=== PATIENT | male | born 1940 | race Caucasian/White ===

== ENCOUNTER → 2016-07-04 | Outpatient (CLI) | payer MEDICARE, MEDICAID ==
[~2016-07-04] MED LIST: ASPIRIN81 M1 PO; ATARAX25 MG PO; ATIVAN0.5 MG PO; ATIVAN1 MG PO; AUGMENTIN 875875 MG PO; BENADRYL25 MG PO; COREG6.25 MG PO; CORTISPORIN SUS10 ML OT; CYMBALTA30 M1 PO; CYMBALTA30 MG PO; DAYPRO600 M1 PO; DEBROX 15 ML15 M1 OT; DEBROX15 ML OT; FLOMAX0.4 MG PO; GABAPENTIN400 MG PO; HYDROCODONE BIT1 T11 PO; LISINOPRIL10 MG PO; MEDROL DOSEPAK4 MG PO; MELOXICAM7.5 MG PO; METOPROLOL SUCC ER 5; NEURONTIN300 MG PO; PERCOCET 325 MG1 TA6 PO; PRAVACHOL40 MG PO; PREDNICOT20 MG PO; PREDNISONE10 MG PO; ROBAXIN750 MG PO; SLEEPING PILL; TOPROL XL25 MG PO; VICODIN 5/500 505 MG PO; VICODIN 500 MG-1 TAB PO; ZANTAC 150150 MG PO; ZETIA10 MG PO; ZOFRAN ODT4 MG SL; ZYRTEC10 MG PO; [UNRECOGNIZED DRUG - REMARK]
[2016-07-04 10:37] LABS: THYROID STIM HORMONE (HS) 0.908 uIU/ml (0.358-4.75)
== END | disposition home or self-care (01) ==
LOC: LAB 09:24
PROVIDERS: Internal Medicine
DX: C61 Malignant neoplasm of prostate (principal); I25.10 Atherosclerotic heart disease of native coronary artery without angina pectoris; I49.01 Ventricular fibrillation; Z79.899 Other long term (current) drug therapy

== ENCOUNTER 2016-08-29 17:06 | Emergency (ER) | payer OTHER, MEDICAID ==
[~2016-08-29] VITALS: Ht 170.1 cm; Wt 75.3 kg
[2016-08-29 17:09] VITALS: BP 134/82
== END 2016-08-29 17:49 | disposition home or self-care (01) ==
LOC: ED 17:06
DX: H61.23 Impacted cerumen, bilateral (principal); Z79.899 Other long term (current) drug therapy; Z79.82 Long term (current) use of aspirin; Z98.890 Other specified postprocedural states; Z95.0 Presence of cardiac pacemaker; Z88.8 Allergy status to other drugs, medicaments and biological substances; Z88.5 Allergy status to narcotic agent

== ENCOUNTER 2016-09-09 11:11 | Emergency (ER) | payer OTHER, MEDICAID ==
[~2016-09-09] VITALS: Wt 74.8 kg
[2016-09-09 11:44] LABS: BASO # 0.1 10*3/uL (0.0-0.1); BASO % 0.5 % (0.0-1.0); EOS # 0.2 10*3/uL (0.0-0.4); EOS % 2.4 % (1.0-4.0); HEMATOCRIT 41.2 % (42.0-52.0); HEMOGLOBIN 13.7 g/dl (14.0-18.0); LYMPH # 3.9 10*3/uL (1.3-4.4); LYMPH % 39.8 % (27.0-41.0); MEAN CELL VOLUME 89.6 fl (80.0-94.0); MEAN CORPUSCULAR HGB 29.8 pg (27.0-31.0); MEAN CORPUSCULAR HGB CONC 33.3 g/dl (33.0-37.0); MEAN PLATELET VOLUME 8.9 fl (9.6-12.3); MONO # 0.9 10*3/uL (0.1-1.0); MONO % 9.3 % (3.0-9.0); NEUT # 4.6 10*3/uL (2.3-7.9); NEUT % 47.7 % (47.0-73.0); PLATELET COUNT AUTOMATED 236 10*3/uL (130-400); RED CELL DISTRI WIDTH 13.4 % (0-14.5); WHITE BLOOD COUNT 9.7 10*3/uL (4.8-10.8)
[2016-09-09 12:01] LABS: ALBUMIN 3.5 gm/dl (3.1-4.5); ALKALINE PHOSPHATASE 101 U/L (45-117); BILIRUBIN, TOTAL 0.5 mg/dl (0.2-1.0); BUN 20 mg/dl (7-24); CARBON DIOXIDE 27 mmol/L (21-32); CHLORIDE 102 mmol/L (98-107); EST GLOM FILT AFRICAN AMERICAN > 60 ml/min; GLUCOSE 157 mg/dL (65-99); POTASSIUM 3.9 mmol/L (3.5-5.1); SGOT/AST 19 IU/L (3-35); SGPT/ALT 20 U/L (12-78); SODIUM 142 mmol/L (136-145); TOTAL PROTEIN 7.8 gm/dL (6.4-8.2)
[2016-09-09 12:03] LABS: TROPONIN I < 0.015 ng/ml (<0.045)
[2016-09-09 12:29] VITALS: BP 127/84
[2016-09-09 12:31] LABS: INTERNATIONAL NORM RATIO 0.9 (2.0-3.5)
== END 2016-09-09 13:26 | disposition home or self-care (01) ==
LOC: ED 11:11
PROVIDERS: Emergency Medicine
DX: I49.3 Ventricular premature depolarization (principal); Z95.0 Presence of cardiac pacemaker; Z88.6 Allergy status to analgesic agent; Z88.8 Allergy status to other drugs, medicaments and biological substances; Z79.82 Long term (current) use of aspirin; Z79.899 Other long term (current) drug therapy

== ENCOUNTER 2016-09-20 00:42 | Emergency (ER) | payer OTHER, MEDICAID ==
[~2016-09-20] VITALS: Ht 167.6 cm; Wt 76.2 kg
[2016-09-20 00:49] VITALS: BP 128/73
[2016-09-20 02:14] LABS: BILIRUBIN NEGATIVE (NEGATIVE); BLOOD NEGATIVE (NEGATIVE); CLARITY CLEAR (CLEAR); COLOR YELLOW (YELLOW); GLUCOSE NEGATIVE (NEGATIVE); KETONE NEGATIVE (NEGATIVE); LEUKO ESTERASE NEGATIVE (NEGATIVE); NITRITE NEGATIVE (NEGATIVE); PROTEIN NEGATIVE (NEGATIVE); SPECIFIC GRAVITY 1.025 (1.005-1.030); UROBILINOGEN 0.2 E.U./dl (0.2-1.0)
[2016-09-20] MEDS ORDERED: HYDROCODONE/ACE1 T14 PO (02:14)
[2016-09-20 02:22] LABS: BACTERIA TRACE; URINE REFLEX COMMENT NO (NO); WBC 0-2 wbc/hpf (0-5)
== END 2016-09-20 02:25 | disposition home or self-care (01) ==
LOC: ED 00:42
PROVIDERS: Family Medicine Sports Medicine
DX: N20.0 Calculus of kidney (principal); I25.2 Old myocardial infarction; Z85.46 Personal history of malignant neoplasm of prostate; Z85.038 Personal history of other malignant neoplasm of large intestine; Z88.8 Allergy status to other drugs, medicaments and biological substances; Z88.6 Allergy status to analgesic agent; Z79.82 Long term (current) use of aspirin; Z79.899 Other long term (current) drug therapy

== ENCOUNTER → 2016-10-31 | Outpatient (CLI) | payer OTHER, MEDICAID ==
[~2016-10-31] MED LIST changes: +HYDROCODONE/ACE1 T14 PO
[2016-10-31 16:16] LABS: BASO # 0.1 10*3/uL (0.0-0.1); BASO % 0.6 % (0.0-1.0); EOS # 0.3 10*3/uL (0.0-0.4); EOS % 2.9 % (1.0-4.0); HEMATOCRIT 41.9 % (42.0-52.0); HEMOGLOBIN 14.1 g/dl (14.0-18.0); LYMPH # 3.9 10*3/uL (1.3-4.4); LYMPH % 39.3 % (27.0-41.0); MEAN CELL VOLUME 90.3 fl (80.0-94.0); MEAN CORPUSCULAR HGB 30.4 pg (27.0-31.0); MEAN CORPUSCULAR HGB CONC 33.7 g/dl (33.0-37.0); MEAN PLATELET VOLUME 8.8 fl (9.6-12.3); MONO # 0.9 10*3/uL (0.1-1.0); MONO % 8.9 % (3.0-9.0); NEUT # 4.7 10*3/uL (2.3-7.9); PLATELET COUNT AUTOMATED 221 10*3/uL (130-400); RED BLOOD COUNT 4.64 10*6/uL (4.50-5.90); RED CELL DISTRI WIDTH 13.5 % (0-14.5); WHITE BLOOD COUNT 9.9 10*3/uL (4.8-10.8)
[2016-10-31 16:48] LABS: BILIRUBIN, TOTAL 0.6 mg/dl (0.2-1.0); BUN 26 mg/dl (7-24); CARBON DIOXIDE 29 mmol/L (21-32); CHLORIDE 103 mmol/L (98-107); CHOLESTEROL 190 mg/dL (<200); EST GLOM FILT AFRICAN AMERICAN > 60 ml/min; GLUCOSE 104 mg/dL (65-99); POTASSIUM 4.6 mmol/L (3.5-5.1); SGOT/AST 23 IU/L (3-35); SGPT/ALT 22 U/L (12-78); SODIUM 139 mmol/L (136-145); TOTAL PROTEIN 8.5 gm/dL (6.4-8.2); TRIGLYCERIDES 187 mg/dl (<150); VLDL CHOLESTEROL 37 mg/dL (6-40)
[2016-10-31 16:49] LABS: ALKALINE PHOSPHATASE 110 U/L (45-117); HDL CHOLESTEROL 44 mg/dl (40-60); LDL CHOLESTEROL 109 mg/dL (9-159)
== END | disposition home or self-care (01) ==
LOC: LAB 15:31
PROVIDERS: Nurse Practitioner Family
DX: I10 Essential (primary) hypertension (principal); E78.2 Mixed hyperlipidemia

== ENCOUNTER 2016-12-19 10:14 | Emergency (ER) | payer OTHER, MEDICAID ==
[~2016-12-19] VITALS: Ht 170.1 cm; Wt 76.2 kg
[2016-12-19 10:19] VITALS: BP 124/59
[2016-12-19] MEDS ORDERED: DEBROX15 ML OT (10:35)
== END 2016-12-19 11:45 | disposition home or self-care (01) ==
LOC: ED 10:14
DX: H61.23 Impacted cerumen, bilateral (principal); R03.0 Elevated blood-pressure reading, without diagnosis of hypertension; Z88.6 Allergy status to analgesic agent; Z88.8 Allergy status to other drugs, medicaments and biological substances; Z79.899 Other long term (current) drug therapy; Z79.82 Long term (current) use of aspirin

== ENCOUNTER → 2017-01-27 | Outpatient (CLI) | payer OTHER, MEDICAID ==
--- NOTE | 2017-01-27 07:20 | NUR ---
PT HERE FOR LAB DRAW AND MEDIPORT FLUSH. SITE ACCESSED WITH NONCORING NEEDLE RSC. PROMPT BLOOD RETURN NOTED. WASTE DISCARDED. SPECIMEN SENT TO MAIN LAB. MEDIPORT FLUSHED PER POLICY. TOLERATED WELL. DRESSING APPLIED. NO BLEEDING NOTED AT DISCHARGE. MADAN CABALLERO RN
== END ==
LOC: LAB 07:26
PROVIDERS: Internal Medicine
DX: Z13.9 Encounter for screening, unspecified (principal); E78.4 Other hyperlipidemia

== ENCOUNTER 2017-02-17 15:40 | Emergency (ER) | payer OTHER, MEDICAID ==
[~2017-02-17] VITALS: Wt 75.7 kg
[2017-02-17 16:07] VITALS: BP 113/83
[2017-02-17] MEDS ORDERED: MEDROL DOSEPAK4 MG PO (18:29)
== END 2017-02-17 22:55 | disposition home or self-care (01) ==
LOC: ED 15:40
DX: M54.40 Lumbago with sciatica, unspecified side (principal); R20.0 Anesthesia of skin; R20.2 Paresthesia of skin; Z88.8 Allergy status to other drugs, medicaments and biological substances; Z88.6 Allergy status to analgesic agent; Z79.899 Other long term (current) drug therapy; Z79.82 Long term (current) use of aspirin

== ENCOUNTER 2017-03-30 17:44 | Emergency (ER) | payer OTHER, MEDICAID ==
[~2017-03-30] VITALS: Ht 170.1 cm; Wt 76.2 kg
[2017-03-30] MEDS ORDERED: PRAVASTATIN SOD10 MG PO (18:06)
[2017-03-30] MEDS ORDERED: BRILINTA60 MG PO (18:06)
[2017-03-30 19:28] VITALS: BP 128/90
== END 2017-03-30 20:35 | disposition home or self-care (01) ==
LOC: ED 17:44
DX: S51.012A Laceration without foreign body of left elbow, initial encounter (principal); S50.02XA Contusion of left elbow, initial encounter; Z95.0 Presence of cardiac pacemaker; Z98.890 Other specified postprocedural states; Z79.82 Long term (current) use of aspirin; Z88.8 Allergy status to other drugs, medicaments and biological substances; Z88.5 Allergy status to narcotic agent; Z79.899 Other long term (current) drug therapy; W19.XXXA Unspecified fall, initial encounter; Y93.89 Activity, other specified; Y92.481 Parking lot as the place of occurrence of the external cause; Y99.9 Unspecified external cause status

== ENCOUNTER → 2017-03-31 | Outpatient (CLI) | payer OTHER, MEDICAID ==
[~2017-03-31] MED LIST changes: +BRILINTA60 MG PO; +BRILINTA90 M1 PO; +CYMBALTA60 MG PO; +LISINOPRIL10 M1 PO; +METOPROLOL TAR100 M1 PO; +PRAVASTATIN SOD10 MG PO; +PRAVASTATIN SOD20 MG PO
== END | disposition home or self-care (01) ==
LOC: US 06:59
DX: M48.02 Spinal stenosis, cervical region (principal); L98.9 Disorder of the skin and subcutaneous tissue, unspecified; R93.8 Abnormal findings on diagnostic imaging of other specified body structures

== ENCOUNTER → 2017-04-10 | Day surgery (SDC) | payer OTHER, MEDICAID ==
[2017-04-10] VITALS (7 sets, daily range): BP systolic 97–130; BP diastolic 53–72
[2017-04-10 10:07] LABS: ACT PARTIAL THROMBO TIME 27.7 SECONDS (20.8-31.5)
== END ==
LOC: RAD 04-03 14:00 → CT 04-03 15:00 → SDC 01:36 → EDSTATUS 11:00
PROVIDERS: Orthopaedic Surgery
DX: M54.16 Radiculopathy, lumbar region (principal); M46.96 Unspecified inflammatory spondylopathy, lumbar region; M47.812 Spondylosis without myelopathy or radiculopathy, cervical region; I10 Essential (primary) hypertension; I25.2 Old myocardial infarction; E78.00 Pure hypercholesterolemia, unspecified; Z85.038 Personal history of other malignant neoplasm of large intestine; Z85.46 Personal history of malignant neoplasm of prostate; Z86.14 Personal history of Methicillin resistant Staphylococcus aureus infection; Z83.3 Family history of diabetes mellitus; Z82.49 Family history of ischemic heart disease and other diseases of the circulatory system; Z87.891 Personal history of nicotine dependence

== ENCOUNTER 2017-05-01 13:42 | Emergency (ER) | payer OTHER, MEDICAID ==
[~2017-05-01] VITALS: Ht 167.6 cm; Wt 76.2 kg
[2017-05-01 13:57] VITALS: BP 139/67
[2017-05-01 15:57] LABS: BASO # 0.1 10*3/uL (0.0-0.1); BASO % 0.7 % (0.0-1.0); EOS # 0.2 10*3/uL (0.0-0.4); EOS % 1.8 % (1.0-4.0); HEMATOCRIT 36.8 % (42.0-52.0); HEMOGLOBIN 12.4 g/dl (14.0-18.0); LYMPH # 3.6 10*3/uL (1.3-4.4); LYMPH % 37.4 % (27.0-41.0); MEAN CELL VOLUME 88.9 fl (80.0-94.0); MEAN CORPUSCULAR HGB CONC 33.7 g/dl (33.0-37.0); MEAN PLATELET VOLUME 9.2 fl (9.6-12.3); NEUT # 4.7 10*3/uL (2.3-7.9); NEUT % 49.9 % (47.0-73.0); PLATELET COUNT AUTOMATED 236 10*3/uL (130-400); RED BLOOD COUNT 4.14 10*6/uL (4.50-5.90); RED CELL DISTRI WIDTH 13.8 % (0-14.5); WHITE BLOOD COUNT 9.5 10*3/uL (4.8-10.8)
[2017-05-01 16:16] LABS: ALBUMIN 3.4 gm/dl (3.1-4.5); ALKALINE PHOSPHATASE 101 U/L (45-117); BUN 20 mg/dl (7-24); CHLORIDE 105 mmol/L (98-107); CREATININE 0.95 mg/dL (0.70-1.30); POTASSIUM 3.7 mmol/L (3.5-5.1); SGOT/AST 18 IU/L (3-35); SGPT/ALT 21 U/L (12-78); SODIUM 140 mmol/L (136-145); TOTAL PROTEIN 7.1 gm/dL (6.4-8.2)
[2017-05-01] MEDS ORDERED: PREDNISONE10 MG PO (17:02)
== END 2017-05-01 17:20 | disposition home or self-care (01) ==
LOC: ED 13:42
PROVIDERS: Nurse Practitioner
DX: S70.02XA Contusion of left hip, initial encounter (principal); R26.89 Other abnormalities of gait and mobility; Z95.0 Presence of cardiac pacemaker; Z98.890 Other specified postprocedural states; Z79.82 Long term (current) use of aspirin; Z79.899 Other long term (current) drug therapy; Z88.8 Allergy status to other drugs, medicaments and biological substances; Z88.5 Allergy status to narcotic agent; W01.0XXA Fall on same level from slipping, tripping and stumbling without subsequent striking against object, initial encounter; Y93.89 Activity, other specified; Y92.89 Other specified places as the place of occurrence of the external cause; Y99.9 Unspecified external cause status

== ENCOUNTER 2017-05-14 21:41 | Emergency (ER) | payer OTHER, MEDICAID ==
[~2017-05-14] VITALS: Wt 77.1 kg
[2017-05-14] MEDS ORDERED: CLOPIDOGREL75 MG PO (22:05)
[2017-05-14 22:37] VITALS: BP 130/64
== END 2017-05-14 23:51 | disposition home or self-care (01) ==
LOC: ED 21:41
DX: S00.03XA Contusion of scalp, initial encounter (principal); D68.8 Other specified coagulation defects; I10 Essential (primary) hypertension; Z87.442 Personal history of urinary calculi; Z98.890 Other specified postprocedural states; Z95.0 Presence of cardiac pacemaker; Z88.8 Allergy status to other drugs, medicaments and biological substances; Z88.5 Allergy status to narcotic agent; Z79.82 Long term (current) use of aspirin; Z79.899 Other long term (current) drug therapy; Z79.01 Long term (current) use of anticoagulants; W01.198A Fall on same level from slipping, tripping and stumbling with subsequent striking against other object, initial encounter; Y93.89 Activity, other specified; Y92.89 Other specified places as the place of occurrence of the external cause; Y99.9 Unspecified external cause status

== ENCOUNTER 2017-06-17 20:28 | Inpatient (IN) | payer OTHER, MEDICAID ==
[~2017-06-17] VITALS: Ht 152.4 cm; Wt 74.4 kg
--- NOTE | ~2017-06-17 | CON ---
[place], [place] REPORT OF CONSULTATION NAME: VALENTINA HUNT UNIT #: [id number] ROOM: [id number] DOCTOR: LEA BLANCO MD BIRTHDATE: [birth year] DOS: 06/20/2017 PSYCHIATRIC CONSULTATION CHIEF COMPLAINT: The anxiety and pain are just so bad. HISTORY OF PRESENT ILLNESS: This is a 77-year-old white male who presented to the hospital at [facility] with worsening lower back pain and increased anxiety. He has dealt with chronic pain for years and is followed by Dr. Dowell. He reports that the pain is sharp, intermittent and nonradiating. The patient states that he also deals with significant depression because of this as well as significant anxiety and panic attacks. Most recently, he has been started on Cymbalta and the dose was raised to 60 mg. Since the addition of the Cymbalta, he notes that the frequency and intensity of his panic attacks have lessened greatly and his pain has also come somewhat under control, but it is still intense. He reports that he would welcome relief from any of these symptoms and is open to me adjusting his medicines accordingly. MENTAL STATUS: He is alert and oriented. Mood does seem to be horribly depressed. Affect is flat, blunted with constricted range with significant anxiety. There is no soraida or hypomania. There are no psychotic symptoms. DIAGNOSIS: Major depression, recurrent and panic disorder. PLAN: I will increase his Cymbalta from 60 mg a day to 60 mg in the morning and 30 mg at night, targeting a dose of 120 mg a day if need be. I will also order Zostrix high potency cream to be applied to his affected joints, engage in individual and kerns milieu activities if possible, returning home when stable. LEA BLANCO MD CM:CONSTR:REPORT OF CONSULTATION 06/20/17 1110 interface
[~2017-06-17 20:28] MED LIST changes: +CLOPIDOGREL75 MG PO
[2017-06-17 20:36] VITALS: BP 116/59
[2017-06-17 22:05] VITALS: BP 120/68
[2017-06-17 22:27] LABS: BASO # 0.1 10*3/uL (0.0-0.1); BASO % 0.7 % (0.0-1.0); EOS # 0.2 10*3/uL (0.0-0.4); EOS % 1.9 % (1.0-4.0); HEMATOCRIT 39.9 % (42.0-52.0); HEMOGLOBIN 13.4 g/dl (14.0-18.0); LYMPH # 2.3 10*3/uL (1.3-4.4); LYMPH % 25.7 % (27.0-41.0); MEAN CELL VOLUME 89.7 fl (80.0-94.0); MEAN CORPUSCULAR HGB 30.1 pg (27.0-31.0); MEAN CORPUSCULAR HGB CONC 33.6 g/dl (33.0-37.0); MEAN PLATELET VOLUME 9.4 fl (9.6-12.3); MONO # 0.9 10*3/uL (0.1-1.0); MONO % 9.6 % (3.0-9.0); NEUT # 5.6 10*3/uL (2.3-7.9); NEUT % 61.9 % (47.0-73.0); PLATELET COUNT AUTOMATED 221 10*3/uL (130-400); RED BLOOD COUNT 4.45 10*6/uL (4.50-5.90); RED CELL DISTRI WIDTH 13.2 % (0-14.5)
[2017-06-17 22:43] LABS: ALBUMIN 3.8 gm/dl (3.1-4.5); ALKALINE PHOSPHATASE 125 U/L (45-117); BUN 25 mg/dl (7-24); CHLORIDE 101 mmol/L (98-107); CREATININE 0.77 mg/dL (0.70-1.30); POTASSIUM 3.8 mmol/L (3.5-5.1); SGOT/AST 21 IU/L (3-35); SGPT/ALT 23 U/L (12-78); SODIUM 138 mmol/L (136-145); TOTAL PROTEIN 7.8 gm/dL (6.4-8.2)
[2017-06-18] VITALS: BP 141/58
[2017-06-18 06:27] LABS: BASO % 0.5 % (0.0-1.0); EOS # 0.2 10*3/uL (0.0-0.4); EOS % 2.1 % (1.0-4.0); HEMATOCRIT 38.1 % (42.0-52.0); LYMPH # 1.6 10*3/uL (1.3-4.4); LYMPH % 21.2 % (27.0-41.0); MEAN CELL VOLUME 89.6 fl (80.0-94.0); MEAN CORPUSCULAR HGB 30.6 pg (27.0-31.0); MEAN CORPUSCULAR HGB CONC 34.1 g/dl (33.0-37.0); MONO # 0.7 10*3/uL (0.1-1.0); MONO % 8.7 % (3.0-9.0); NEUT % 67.1 % (47.0-73.0); PLATELET COUNT AUTOMATED 181 10*3/uL (130-400); RED BLOOD COUNT 4.25 10*6/uL (4.50-5.90); RED CELL DISTRI WIDTH 13.2 % (0-14.5); WHITE BLOOD COUNT 7.5 10*3/uL (4.8-10.8)
[2017-06-18 07:04] LABS: ALBUMIN 3.3 gm/dl (3.1-4.5); BUN 24 mg/dl (7-24); CHLORIDE 101 mmol/L (98-107); CHOLESTEROL 184 mg/dL (<200); CREATININE 0.69 mg/dL (0.70-1.30); PHOSPHOROUS 3.3 mg/dL (2.5-4.9); POTASSIUM 3.5 mmol/L (3.5-5.1); SGOT/AST 18 IU/L (3-35); SGPT/ALT 21 U/L (12-78); SODIUM 138 mmol/L (136-145); TRIGLYCERIDES 158 mg/dl (<150); VLDL CHOLESTEROL 32 mg/dL (6-40)
[2017-06-18 07:10] LABS: ALKALINE PHOSPHATASE 112 U/L (45-117); FREE T4 1.13 ng/dl (0.76-1.46); HDL CHOLESTEROL 35 mg/dl (40-60); LDL CHOLESTEROL 117 mg/dL (9-159); THYROID STIM HORMONE (HS) 0.918 uIU/ml (0.358-4.75); TOTAL PROTEIN 7.2 gm/dL (6.4-8.2); VITAMIN D, 25-HYDROXY 22.8 ng/mL (30-100)
[2017-06-18 08:00] VITALS: BP 121/89
[2017-06-18 10:16] LABS: BILIRUBIN 1+ (NEGATIVE); BLOOD NEGATIVE (NEGATIVE); CLARITY SL CLOUDY (CLEAR); COLOR YELLOW (YELLOW); GLUCOSE NEGATIVE (NEGATIVE); KETONE 1+ (NEGATIVE); LEUKO ESTERASE NEGATIVE (NEGATIVE); NITRITE NEGATIVE (NEGATIVE); PH 5.5 (5.0-9.0); SPECIFIC GRAVITY >= 1.030 (1.005-1.030); UROBILINOGEN 0.2 E.U./dl (0.2-1.0)
[2017-06-18 10:30] LABS: MUCOUS 1+
[2017-06-18 12:00] VITALS: BP 118/54
[2017-06-18 16:00] VITALS: BP 124/78
[2017-06-18 20:00] VITALS: BP 103/50
[2017-06-19] VITALS: BP 107/48
[2017-06-19 01:44] LABS: BILIRUBIN NEGATIVE (NEGATIVE); BLOOD 3+ (NEGATIVE); CLARITY SL CLOUDY (CLEAR); COLOR YELLOW (YELLOW); GLUCOSE NEGATIVE (NEGATIVE); KETONE NEGATIVE (NEGATIVE); LEUKO ESTERASE NEGATIVE (NEGATIVE); NITRITE NEGATIVE (NEGATIVE); PH 5.5 (5.0-9.0); SPECIFIC GRAVITY >= 1.030 (1.005-1.030); UROBILINOGEN 0.2 E.U./dl (0.2-1.0)
[2017-06-19 02:11] LABS: MUCOUS 1+
[2017-06-19 02:12] LABS: RBC 31-40 rbc/hpf (0-2)
[2017-06-19 05:48] LABS: ALBUMIN 3.1 gm/dl (3.1-4.5); ALKALINE PHOSPHATASE 119 U/L (45-117); BUN 27 mg/dl (7-24); CHLORIDE 101 mmol/L (98-107); CREATININE 0.99 mg/dL (0.70-1.30); POTASSIUM 3.8 mmol/L (3.5-5.1); SGOT/AST 21 IU/L (3-35); SGPT/ALT 23 U/L (12-78); SODIUM 138 mmol/L (136-145); TOTAL PROTEIN 6.9 gm/dL (6.4-8.2)
[2017-06-19 05:57] LABS: BASO # 0.1 10*3/uL (0.0-0.1); BASO % 1.1 % (0.0-1.0); EOS # 0.1 10*3/uL (0.0-0.4); EOS % 2.4 % (1.0-4.0); HEMATOCRIT 38.1 % (42.0-52.0); HEMOGLOBIN 12.5 g/dl (14.0-18.0); LYMPH # 2.4 10*3/uL (1.3-4.4); LYMPH % 45.1 % (27.0-41.0); MEAN CORPUSCULAR HGB 30.2 pg (27.0-31.0); MEAN CORPUSCULAR HGB CONC 32.8 g/dl (33.0-37.0); MEAN PLATELET VOLUME 9.9 fl (9.6-12.3); MONO # 0.8 10*3/uL (0.1-1.0); PLATELET COUNT AUTOMATED 168 10*3/uL (130-400); RED BLOOD COUNT 4.14 10*6/uL (4.50-5.90); RED CELL DISTRI WIDTH 13.3 % (0-14.5); WHITE BLOOD COUNT 5.4 10*3/uL (4.8-10.8)
[2017-06-19 08:00] VITALS: BP 119/65
[2017-06-19 12:00] VITALS: BP 72/52
[2017-06-19] MEDS ORDERED: METOPROLOL SUC100 M1 PO (12:19)
[2017-06-19 16:00] VITALS: BP 80/58
[2017-06-19 20:00] VITALS: BP 115/60
[2017-06-20] VITALS: BP 111/76
[2017-06-20 05:55] LABS: BASO % 0.7 % (0.0-1.0); EOS # 0.3 10*3/uL (0.0-0.4); EOS % 4.9 % (1.0-4.0); HEMATOCRIT 34.8 % (42.0-52.0); HEMOGLOBIN 11.1 g/dl (14.0-18.0); LYMPH # 2.1 10*3/uL (1.3-4.4); MEAN CELL VOLUME 92.8 fl (80.0-94.0); MEAN CORPUSCULAR HGB 29.6 pg (27.0-31.0); MEAN CORPUSCULAR HGB CONC 31.9 g/dl (33.0-37.0); MEAN PLATELET VOLUME 9.6 fl (9.6-12.3); MONO # 0.7 10*3/uL (0.1-1.0); MONO % 12.4 % (3.0-9.0); NEUT # 2.4 10*3/uL (2.3-7.9); NEUT % 43.8 % (47.0-73.0); PLATELET COUNT AUTOMATED 157 10*3/uL (130-400); RED BLOOD COUNT 3.75 10*6/uL (4.50-5.90); RED CELL DISTRI WIDTH 13.5 % (0-14.5); WHITE BLOOD COUNT 5.5 10*3/uL (4.8-10.8)
[2017-06-20 08:00] VITALS: BP 107/57
[2017-06-20 12:00] VITALS: BP 112/67
[2017-06-20] MEDS ORDERED: DULOXETINE HCL60 MG PO (13:17)
[2017-06-20] MEDS ORDERED: METOPROLOL SUCC25 M2 PO (13:17)
[2017-06-20] MEDS ORDERED: LISINOPRIL5 MG PO (13:17)
[2017-06-20] MEDS ORDERED: DULOXETINE HCL30 MG PO (13:17)
[2017-06-20] MEDS ORDERED: Zostrix 0.1% T (13:26)
== END 2017-06-20 16:09 | disposition home or self-care (01) | DRG 552 ==
LOC: ED 20:28 → EDHOLD 21:15 → 4E 21:15
PROVIDERS: Internal Medicine; Internal Medicine Hospice and Palliative Medicine
DX: M54.5 Low back pain (principal); D64.9 Anemia, unspecified; E83.41 Hypermagnesemia; R00.1 Bradycardia, unspecified; F33.9 Major depressive disorder, recurrent, unspecified; D72.821 Monocytosis (symptomatic); R53.1 Weakness; F41.0 Panic disorder [episodic paroxysmal anxiety]; G89.29 Other chronic pain; M48.061 Spinal stenosis, lumbar region without neurogenic claudication; M85.88 Other specified disorders of bone density and structure, other site; D72.810 Lymphocytopenia; R73.9 Hyperglycemia, unspecified; E78.5 Hyperlipidemia, unspecified; I25.10 Atherosclerotic heart disease of native coronary artery without angina pectoris; M15.0 Primary generalized (osteo)arthritis; R26.81 Unsteadiness on feet; E80.6 Other disorders of bilirubin metabolism; Z88.8 Allergy status to other drugs, medicaments and biological substances; Z88.5 Allergy status to narcotic agent; Z79.82 Long term (current) use of aspirin; Z95.5 Presence of coronary angioplasty implant and graft; Z82.49 Family history of ischemic heart disease and other diseases of the circulatory system

== ENCOUNTER 2017-06-21 13:26 | Inpatient (IN) | payer OTHER, MEDICAID ==
[~2017-06-21] VITALS: Ht 170.1 cm; Wt 69.6 kg
[~2017-06-21 13:26] MED LIST changes: +DULOXETINE HCL30 MG PO; +DULOXETINE HCL60 MG PO; +LISINOPRIL5 MG PO; +METOPROLOL SUC100 M1 PO; +METOPROLOL SUCC25 M2 PO; +Zostrix 0.1% T
[2017-06-21 13:29] VITALS: BP 145/80
[2017-06-21 16:00] VITALS: BP 185/73
[2017-06-21 20:00] VITALS: BP 150/78
[2017-06-22 00:10] VITALS: BP 153/77
[2017-06-22 03:44] LABS: BILIRUBIN NEGATIVE (NEGATIVE); BLOOD 3+ (NEGATIVE); CLARITY SL CLOUDY (CLEAR); COLOR YELLOW (YELLOW); GLUCOSE NEGATIVE (NEGATIVE); KETONE 2+ (NEGATIVE); LEUKO ESTERASE NEGATIVE (NEGATIVE); NITRITE NEGATIVE (NEGATIVE); UROBILINOGEN 0.2 E.U./dl (0.2-1.0)
[2017-06-22 03:50] LABS: RBC TNTC rbc/hpf (0-2)
[2017-06-22 06:22] LABS: BASO % 0.5 % (0.0-1.0); EOS # 0.2 10*3/uL (0.0-0.4); EOS % 2.4 % (1.0-4.0); HEMATOCRIT 38.8 % (42.0-52.0); HEMOGLOBIN 12.7 g/dl (14.0-18.0); LYMPH # 1.8 10*3/uL (1.3-4.4); MEAN CELL VOLUME 91.1 fl (80.0-94.0); MEAN CORPUSCULAR HGB 29.8 pg (27.0-31.0); MEAN CORPUSCULAR HGB CONC 32.7 g/dl (33.0-37.0); MEAN PLATELET VOLUME 9.3 fl (9.6-12.3); MONO # 0.6 10*3/uL (0.1-1.0); MONO % 9.4 % (3.0-9.0); NEUT % 60.5 % (47.0-73.0); PLATELET COUNT AUTOMATED 183 10*3/uL (130-400); RED BLOOD COUNT 4.26 10*6/uL (4.50-5.90); RED CELL DISTRI WIDTH 13.2 % (0-14.5); WHITE BLOOD COUNT 6.6 10*3/uL (4.8-10.8)
[2017-06-22 06:32] LABS: BUN 17 mg/dl (7-24); CHLORIDE 100 mmol/L (98-107); CREATININE 0.63 mg/dL (0.70-1.30); POTASSIUM 3.8 mmol/L (3.5-5.1); SODIUM 137 mmol/L (136-145)
[2017-06-22 08:00] VITALS: BP 153/60
[2017-06-22 12:00] VITALS: BP 150/62
[2017-06-22 16:00] VITALS: BP 151/64
[2017-06-22 20:00] VITALS: BP 150/86
[2017-06-23] VITALS: BP 133/57
[2017-06-23 08:00] VITALS: BP 153/48
[2017-06-23 09:24] VITALS: BP 140/85
[2017-06-23 16:00] VITALS: BP 160/63
[2017-06-23 20:02] VITALS: BP 169/71
[2017-06-24 08:00] VITALS: BP 145/80
[2017-06-24 12:00] VITALS: BP 131/62
[2017-06-24] MEDS ORDERED: Percocet 325 MG1 TAB PO (16:12)
[2017-06-24] MEDS ORDERED: CYCLOBENZAPRINE10 MG PO (16:12)
== END 2017-06-24 18:00 | disposition other institution (70) | DRG 552 ==
LOC: ED 13:26 → EDHOLD 15:03 → 5E 15:03
PROVIDERS: Internal Medicine; Student in an Organized Health Care Education/Training Program
DX: M48.061 Spinal stenosis, lumbar region without neurogenic claudication (principal); D64.9 Anemia, unspecified; E55.9 Vitamin D deficiency, unspecified; E78.5 Hyperlipidemia, unspecified; F32.9 Major depressive disorder, single episode, unspecified; G89.29 Other chronic pain; M19.90 Unspecified osteoarthritis, unspecified site; W19.XXXS Unspecified fall, sequela; I10 Essential (primary) hypertension; R26.9 Unspecified abnormalities of gait and mobility; R26.81 Unsteadiness on feet; M54.30 Sciatica, unspecified side; I25.10 Atherosclerotic heart disease of native coronary artery without angina pectoris; F41.1 Generalized anxiety disorder; Z85.038 Personal history of other malignant neoplasm of large intestine; Z85.46 Personal history of malignant neoplasm of prostate; Z95.0 Presence of cardiac pacemaker; Z79.82 Long term (current) use of aspirin

== ENCOUNTER 2017-06-26 19:29 | Emergency (ER) | payer MEDICARE, MEDICAID ==
[~2017-06-26] VITALS: Ht 167.6 cm; Wt 66.2 kg
[~2017-06-26 19:29] MED LIST changes: +CYCLOBENZAPRINE10 MG PO; +Percocet 325 MG1 TAB PO
[2017-06-26] MEDS ORDERED: DULOXETINE HCL30 MG PO (19:39)
[2017-06-26] MEDS ORDERED: PERCOCET 5-3251 EACH PO (19:41)
[2017-06-26 20:54] LABS: HEMATOCRIT 38.3 % (42.0-52.0); MEAN CELL VOLUME 88.9 fl (80.0-94.0); MEAN CORPUSCULAR HGB 30.2 pg (27.0-31.0); MEAN CORPUSCULAR HGB CONC 33.9 g/dl (33.0-37.0); PLATELET COUNT AUTOMATED 226 10*3/uL (130-400); RED BLOOD COUNT 4.31 10*6/uL (4.50-5.90); RED CELL DISTRI WIDTH 13.8 % (0-14.5); WHITE BLOOD COUNT 10.3 10*3/uL (4.8-10.8)
[2017-06-26 21:10] LABS: ALBUMIN 3.5 gm/dl (3.1-4.5); ALKALINE PHOSPHATASE 107 U/L (45-117); BUN 28 mg/dl (7-24); CHLORIDE 98 mmol/L (98-107); CREATININE 0.93 mg/dL (0.70-1.30); POTASSIUM 4.8 mmol/L (3.5-5.1); SGOT/AST 36 IU/L (3-35); SGPT/ALT 33 U/L (12-78); SODIUM 132 mmol/L (136-145); TOTAL PROTEIN 7.7 gm/dL (6.4-8.2)
[2017-06-26 21:11] LABS: LIPASE 87 U/L (73-393)
[2017-06-26 21:14] LABS: ATYPICAL LYMPHS 1 % (0-0); BASOPHILS 1 % (0-1); BURR CELLS FEW; PLATELET SUFFICIENCY NORMAL (NORMAL); TOTAL CELLS COUNTED 100 #CELLS
[2017-06-27 00:20] LABS: BILIRUBIN 1+ (NEGATIVE); BLOOD 3+ (NEGATIVE); CLARITY CLOUDY (CLEAR); COLOR YELLOW (YELLOW); GLUCOSE NEGATIVE (NEGATIVE); KETONE 1+ (NEGATIVE); LEUKO ESTERASE NEGATIVE (NEGATIVE); NITRITE NEGATIVE (NEGATIVE); PH 5.5 (5.0-9.0); SPECIFIC GRAVITY 1.025 (1.005-1.030); UROBILINOGEN 0.2 E.U./dl (0.2-1.0)
[2017-06-27 00:34] LABS: RBC TNTC rbc/hpf (0-2)
[2017-06-27 01:55] VITALS: BP 156/69
== END 2017-06-27 02:39 | disposition other institution (70) ==
LOC: ED 19:29
PROVIDERS: Nurse Practitioner Family
DX: M48.07 Spinal stenosis, lumbosacral region (principal); N20.0 Calculus of kidney; M54.42 Lumbago with sciatica, left side; G89.29 Other chronic pain; I25.10 Atherosclerotic heart disease of native coronary artery without angina pectoris; E78.5 Hyperlipidemia, unspecified; I10 Essential (primary) hypertension; M19.90 Unspecified osteoarthritis, unspecified site; Z79.899 Other long term (current) drug therapy; Z85.038 Personal history of other malignant neoplasm of large intestine; Z85.46 Personal history of malignant neoplasm of prostate; Z98.890 Other specified postprocedural states; Z95.0 Presence of cardiac pacemaker; Z79.82 Long term (current) use of aspirin; Z88.8 Allergy status to other drugs, medicaments and biological substances; Z88.5 Allergy status to narcotic agent

== ENCOUNTER 2017-07-31 21:26 | Emergency (ER) | payer MEDICARE, MEDICAID ==
[~2017-07-31] VITALS: Ht 172.7 cm; Wt 90.7 kg
[~2017-07-31 21:26] MED LIST changes: +PERCOCET 5-3251 EACH PO
[2017-07-31 22:32] LABS: BASO # 0.1 10*3/uL (0.0-0.1); EOS # 0.1 10*3/uL (0.0-0.4); EOS % 2.2 % (1.0-4.0); HEMATOCRIT 43.4 % (42.0-52.0); LYMPH # 1.8 10*3/uL (1.3-4.4); MEAN CORPUSCULAR HGB CONC 32.3 g/dl (33.0-37.0); MEAN PLATELET VOLUME 8.8 fl (9.6-12.3); MONO # 0.6 10*3/uL (0.1-1.0); MONO % 10.3 % (3.0-9.0); NEUT # 3.6 10*3/uL (2.3-7.9); NEUT % 57.3 % (47.0-73.0); PLATELET COUNT AUTOMATED 215 10*3/uL (130-400); RED BLOOD COUNT 4.82 10*6/uL (4.50-5.90); RED CELL DISTRI WIDTH 13.6 % (0-14.5); WHITE BLOOD COUNT 6.2 10*3/uL (4.8-10.8)
[2017-07-31 22:47] LABS: ALBUMIN 3.4 gm/dl (3.1-4.5); ALKALINE PHOSPHATASE 118 U/L (45-117); BUN 21 mg/dl (7-24); CHLORIDE 102 mmol/L (98-107); CREATININE 0.82 mg/dL (0.70-1.30); POTASSIUM 3.5 mmol/L (3.5-5.1); SGOT/AST 18 IU/L (3-35); SGPT/ALT 24 U/L (12-78); SODIUM 141 mmol/L (136-145); TOTAL PROTEIN 7.3 gm/dL (6.4-8.2)
[2017-07-31 23:11] LABS: BILIRUBIN NEGATIVE (NEGATIVE); BLOOD 3+ (NEGATIVE); CLARITY CLOUDY (CLEAR); COLOR BROWN (YELLOW); GLUCOSE NEGATIVE (NEGATIVE); KETONE NEGATIVE (NEGATIVE); LEUKO ESTERASE NEGATIVE (NEGATIVE); NITRITE NEGATIVE (NEGATIVE); SPECIFIC GRAVITY >= 1.030 (1.005-1.030)
[2017-07-31 23:15] VITALS: BP 122/77
[2017-07-31 23:29] LABS: RBC TNTC rbc/hpf (0-2)
== END 2017-08-01 00:20 | disposition home or self-care (01) ==
LOC: ED 21:26
PROVIDERS: Emergency Medicine
DX: N20.0 Calculus of kidney (principal); R31.9 Hematuria, unspecified; G89.29 Other chronic pain; I25.10 Atherosclerotic heart disease of native coronary artery without angina pectoris; E78.5 Hyperlipidemia, unspecified; I10 Essential (primary) hypertension; M19.90 Unspecified osteoarthritis, unspecified site; Z79.899 Other long term (current) drug therapy; Z85.038 Personal history of other malignant neoplasm of large intestine; Z88.5 Allergy status to narcotic agent; Z98.890 Other specified postprocedural states; Z88.8 Allergy status to other drugs, medicaments and biological substances; Z79.82 Long term (current) use of aspirin